=== PATIENT | female | born 1990 | race Caucasian/White ===

== ENCOUNTER 2020-02-18 19:00 | Emergency (ER) | payer MEDICAID ==
[~2020-02-18] VITALS: Ht 162.6 cm; Wt 117.9 kg
[2020-02-18 19:20] VITALS: BP_SYST 154
[2020-02-18 19:50] VITALS: BP_SYST 145
== END 2020-02-18 19:50 | disposition home or self-care (01) ==
LOC: SED 19:00
DX: H60.8X2 Other otitis externa, left ear (principal)
CPT/HCPCS: 99283